=== PATIENT | female | born 1965 | race Caucasian/White ===

== ENCOUNTER 2018-11-27 19:01 | Emergency (ER) | payer OTHER ==
[2018-11-27 19:10] VITALS: BP 130/77; PULSE 83; TEMP 98.2; BMI 31.9
[2018-11-27] MEDS ORDERED: KETOROLAC TROMETHAMINE 60 MG/2 ML VIAL IM ONE (20:02)
--- NOTE | 2018-11-27 20:05 | PDOC ---
History of Present Illness - General Chief Complaint: Back Pain Stated Complaint: BACK PAIN Time Seen by Provider: 11/27/18 19:19 - History of Present Illness Initial Comments: 11/27/18 20:03 53-year-old female with a past medical history of diabetes hypertension dyslipidemia presents for evaluation of lower back pain with bilateral posterior lateral leg radicular symptoms x2 days without systemic symptoms loss of bowel bladder function or saddle paresthesias. Past History - Past Medical History Allergies/Adverse Reactions: Allergies Allergy/AdvReac Type Severity Reaction Status Date / Time No Known Allergies Allergy Verified 11/27/18 19:08 Home Medications: Ambulatory Orders Erythromycin 0.5% Eye Ointment [Erythromycin 0.5% Eye Ointment -] 1 applic OD TID #1 tube 09/03/15 Cyclobenzaprine HCl [Flexeril 10 mg] 10 mg PO HS PRN #10 tablet 11/27/18 Anemia: Yes Cancer: No COPD: No Hypercholesterolemia: Yes - Surgical History Cholecystectomy: Yes - Immunization History Immunization Up to Date: Yes - Psycho Social/Smoking Cessation Hx Smoking Status: No Smoking History: Never smoked Number of Cigarettes Smoked Daily: 0 Hx Alcohol Use: No Drug/Substance Use Hx: No Substance Use Type: None Review of Systems - Review of Systems Constitutional: No: Fever : No: Incontinence Musculoskeletal: Yes: Back Pain *Physical Exam - Vital Signs Last Vital Signs Temp Pulse Resp BP Pulse Ox 98.2 F 83 17 130/77 98 11/27/18 19:08 11/27/18 19:08 11/27/18 19:08 11/27/18 19:08 11/27/18 19:08 - Physical Exam Comments: 11/27/18 20:03 Lumbar spine skin color and temperature are normal. There is decreased painful range of motion. 5 out of 5 strength in bilateral lower extremities. Thighs and calves are soft and nontender. There are no gross sensory motor deficits. Neurovascularly intact. Medical Decision Making - Medical Decision Making 11/27/18 20:04 Lumbar radiculopathy without gross sensorimotor deficits Toradol in the emergency room. Flexeril at home tomi use of Tylenol and avoiding anti- inflammatories at home however a one-time shot of Toradol for breakthrough was given in the ER follow-up with spine surgery Discharge - Discharge Information Problems reviewed: Yes Clinical Impression/Diagnosis: Back pain Condition: Stable Disposition: HOME - Admission No - Additional Discharge Information Prescriptions: Cyclobenzaprine HCl [Flexeril 10 mg] 10 mg PO HS PRN #10 tablet PRN Reason: Muscle Spasms - Follow up/Referral Referrals: Pita Frederick MD [Primary Care Provider] - Austyn De La Torre MD, [facility] [Staff Physician] - - Patient Discharge Instructions Additional Instructions: Tylenol as directed for pain. Please take the Flexeril as directed 1 tablet before bedtime and will make you sleepy. Return to the emergency room for worsening symptoms. And without fail please follow-up with neurosurgery in 1 to 2 days for further evaluation and treatment options. - Post Discharge Activity
[2018-11-27] MEDS ORDERED: KETOROLAC TROMETHAMINE 60 MG/2 ML VIAL ONE (20:08)
== END 2018-11-27 20:20 | disposition home or self-care (01) ==
LOC: JERFT 19:01
PROC: 3E0233Z Introduction of Anti-inflammatory into Muscle, Percutaneous Approach (ICD-10-PCS; principal; 2018-11-27)
DX: M54.16 Radiculopathy, lumbar region (principal); I10 Essential (primary) hypertension; E11.9 Type 2 diabetes mellitus without complications; Z86.2 Personal history of diseases of the blood and blood-forming organs and certain disorders involving the immune mechanism
CPT/HCPCS: 96372; 99281-25